=== PATIENT | female | born 1985 | race Caucasian/White ===

== ENCOUNTER 2022-03-30 01:10 | Day surgery (SDC) | payer OTHER, SELFPAY ==
[2022-03-23 13:06] VITALS: BMI 25.1
--- NOTE | 2022-03-23 13:10 | PC.NURSE ---
Report to the Outpatient Waiting Room, entrance under the green pavilion located off [facility], at time 0630 on date 03/30/22. Planned Procedure Time: 0830. Time changes happen often and if your time is changed the preop area will call you the afternoon before. - You and your visitor will be asked to self-screen and do not enter if you have any COVID symptoms. - Only one visitor is requested with a max of two and NO children visitors are allowed at this time. - The patient visitor may be requested to leave or wait in car when not with patient due to distancing restrictions. - A mask is optional within the hospital at this time. Patients may have clear liquids (water, carbonated beverages, clear teas, apple juice) until 3 hours prior to surgery with a maximum of 20 ounces. - No food from midnight until time of surgery Take the following medications with a SIP of water the morning of surgery: PAIN PILL IF NEEDED, CITALOPRAM DO NOT STOP ANY OF YOUR OTHER PRESCRIPTION MEDICATIONS PRIOR TO SURGERY?EXCEPT THE FOLLOWING Medications to discontinue per physician:: KETOROLAC Date to take last dose: NO MORE UNTIL AFTER SURGERY Please no make-up, nail kazakh, hairspray, perfume, deodorant, or body powder the day of surgery. No jewelry (including any body piercings) or valuables the day of surgery, leave them at home. Please take a shower or bath the night before, or the morning of, surgery with an antibacterial soap. Wear comfortable, loose fitting clothing. - Jewelry must be removed prior to entering the operating room. Rings and piercings that are not removed may be cut off. - The hospital will not accept responsibility for valuables. - Please leave all valuables, including medications, at home the day of surgery. If you are going home after surgery, a licensed skip load driver must drive you home. - NO public transportation without another adult if you receive anesthesia. - We recommend that an adult stay with you for 24 hours following discharge. - We also recommend that you do not drive, make important decision, drink alcoholic beverages, or take any drugs that were not prescribed by your health care provider for at least 24 hours after your discharge time. If you or anyone in your household have experienced Covid symptoms in the past week, please notify your surgeon or the nurse liaison at the phone number below for possible testing. Telephone instructions given to PT - ALBA POLO and asked if any additional questions and then verbalized understanding. Patient advised to call surgeon office or pre surgery nurse liaison [phone] if any additional questions.
--- NOTE | ~2022-03-30 | XR_ITS ---
Supine and upright views of the abdomen Clinical history: Lithotripsy Findings: Bowel gas pattern is nonspecific. No evidence for obstruction or free air. 1 cm left renal stone present. There are multiple additional smaller left upper pole and right renal stones. Osseous structures are intact. Impression: Bilateral nephrolithiasis. Largest stone is at the left lower pole measuring 1 cm. Reviewed, dictated and finalized at [facility]. [employer] DES[employer] Impression: Bilateral nephrolithiasis. Largest stone is at the left lower pole measuring 1 cm.
[2022-03-30 06:42] VITALS: BP 112/67; PULSE 60; RESP 16; TEMP 36.6; O2SAT 99
[2022-03-30] MEDS: LACTATED RINGERS 1,000 ML 30 ML IV CONT (06:45)
[2022-03-30 07:11] LABS: INR 1.1; Prothrombin Time 13.6 Seconds (11.1-14.7)
[2022-03-30 07:12] LABS: Partial Thromboplastin Time 29.4 SECONDS (22.3-36.8)
--- NOTE | 2022-03-30 07:15 | WPDHPUPDATE1 ---
History and Physical Update Update Date/Time: 03/30/22 07:15 History and Physical has been reviewed, including an updated exam of the patient. There are NO changes in the patient's condition. Risks, benefits, and alternatives have been discussed and questions answered. Patient agrees to proceed with procedure. Proceed with left renal eswl
--- NOTE | 2022-03-30 07:19 | WPDANESEPPF ---
Anes - Initial Pre Proc Eval Procedure: Operation Date: 03/30/22 07:30 Proposed Procedures p Left Extracorporeal Shock Wave Lithotripsy - Luis Angel Gonsalez MD Date/Time: 03/30/22 07:19 Surgeon: Luis Angel Gonsalez MD Pre Op Diagnosis: Left renal stones Patient Data Age: 36 Gender: F Height: 1.75 m Weight: 76.4 kg Last Vital Signs Temp 97.9 F 03/30/22 06:42 Pulse 60 03/30/22 06:42 Resp 16 03/30/22 06:42 BP 112/67 03/30/22 06:42 Pulse Ox 99 03/30/22 06:42 O2 Del Method Room Air 03/30/22 06:42 Allergies Allergy/AdvReac Type Severity Reaction Status Date / Time Penicillins Allergy Gastrointestinal Verified 03/30/22 06:47 Upset Home Medications Medication Instructions Recorded Confirmed Type citalopram 20 mg tablet 20 mg PO DAILY 03/23/22 03/30/22 History hydrocodone 5 mg-acetaminophen 325 1 tablet PO Q6H PRN Pain 03/23/22 03/30/22 History mg tablet ketorolac 10 mg tablet 10 mg PO BID 03/23/22 03/30/22 History norgestrel 0.3 mg-ethinyl 1 tablet PO DAILY 03/23/22 03/30/22 History estradiol 30 mcg tablet (Krishna (28)) Laboratory Tests 03/30/22 06:35 PT 13.6 Seconds Seconds (11.1-14.7) INR 1.1 APTT 29.4 SECONDS SECONDS (22.3-36.8) Patient hx anesthesia problems: post op nausea/vomiting Family hx anesthesia problems: none Results Review: All pre-operative results and documents have been reviewed as part of the pre-operative evaluation. [facility] Social History Social History Smoking status: Never smoker Alcohol intake: never Substance use: never Substance use type: does not use Living arrangements: with family Spiritual care concerns: No Anes - Eval Final PreProcedure Day of Procedure 03/30/22 07:19 Patient weight: normal Heart: regular rate and rhythm Lungs: clear to auscultation Airway: Mallampati scale class II Neurological: alert and oriented Last oral intake: >/= 8 hours ASA classification: II Emergent: no Anesthetic plan: proceed Anesthesia type and monitoring: general LMA and standard monitoring Results Review: All pre-operative results and documents have been reviewed as part of the pre-operative evaluation. Informed Consent: The patient's anesthetic plan and its attendant risks and benefits were discussed with the patient/family/POA. Questions were solicited and answers provided to the satisfaction of the patient/family/POA.
[2022-03-30] MEDS: SCOPOLAMINE 1.5 MG PATCH TRANSDERM (07:23)
[2022-03-30] MEDS: ceFAZolin 2 GM/D5W 50 ML 2 GM/50 ML BAG IVPB (07:26)
--- NOTE | 2022-03-30 08:07 | P.OP_ITS ---
Procedure Note - Detailed Date of Procedure 03/30/22 Pre-op Diagnosis Left renal stones Post-op Diagnosis Same Procedure Performed ESWL of left lower pole renal calculus 1 cm Surgeon Luis Angel Gonsalez MD Anesthesia General Description of Procedure Patient is taken to the operative suite correctly identified. Once anesthesia was obtained she was placed in the supine position the stone was localized in both planes. The lower pole stone was localized. Two thousand five hundred shocks were given the stone. Patient tolerated procedure well without any complications and is taken recovery stable condition. She will follow-up in 10- 14 days with K[facility]. Please send a copy this report to my office Estimated Blood Loss 0 Drains No Packing No Pathology None sent Complications No immediate complications Condition Stable Disposition PACU
[2022-03-30 08:18] VITALS: BP 106/65; PULSE 54; RESP 14; TEMP 36.4; O2SAT 100
[2022-03-30 08:30] VITALS: BP 108/63; PULSE 56; RESP 12; O2SAT 100
[2022-03-30 08:45] VITALS: BP 117/70; PULSE 65; RESP 18; O2SAT 100
[2022-03-30 08:55] VITALS: BP 121/78; PULSE 61; RESP 12
[2022-03-30 09:25] VITALS: BP 104/67; PULSE 53; RESP 12
== END 2022-03-30 09:40 | disposition home or self-care (01) ==
PROVIDERS: PCP Family Medicine; Visit Provider Urology
PROC: (CPT 50590; principal; 2022-03-30 07:30)
DX: N20.0 Calculus of kidney (principal)
CPT/HCPCS: 50590; 36415; 74018; 85610; 85730; A9270; J0690; J1100; J2250; J2370; J2405; J2704; J3010; J7120

== ENCOUNTER 2022-06-06 12:34 | Outpatient (CLI) | payer OTHER, SELFPAY ==
--- NOTE | ~2022-06-06 | XR_ITS ---
XR abdomen/kub 1V 06/06/2022 12:47 Indication: Renal stone Procedure: KUB Comparison: 03/30/2022 Findings: There are bilateral renal stones. Bowel gas pattern is nonobstructive. No acute osseous abnormality. No evidence for organomegaly. Impression: 1: Bilateral nephrolithiasis. Reviewed, dictated and finalized at location B. Impression: 1: Bilateral nephrolithiasis.
== END 2022-06-06 12:35 | disposition home or self-care (01) ==
LOC: ANHIMG 12:36
PROVIDERS: PCP Family Medicine; Visit Provider Urology
DX: N20.0 Calculus of kidney (principal)
CPT/HCPCS: 74018

== ENCOUNTER 2023-02-20 14:57 | Outpatient (CLI) | payer BC, SELFPAY ==
--- NOTE | ~2023-02-20 | XR_ITS ---
EXAM: XR abdomen/kub 1V DATE: 02/20/2023 15:14 HISTORY: CALCIUM KIDNEY STONE . COMPARISON: 06/06/2022. FINDINGS: Clear lung bases. Normal bowel gas pattern. Enlarged liver. Bilateral renal calcifications , stable in number and position. Regional bones and soft tissues normal for age. IMPRESSION: Hepatomegaly. Stable bilateral renal nephrolithiasis. Reviewed, dictated and finalized at location K. [employer]
== END 2023-02-20 14:58 | disposition home or self-care (01) ==
LOC: ANHIMG 15:04
PROVIDERS: PCP Family Medicine; Visit Provider Urology
DX: N20.0 Calculus of kidney (principal)
CPT/HCPCS: 74018

== ENCOUNTER 2024-02-27 10:04 | Outpatient (CLI) | payer BC, SELFPAY ==
--- NOTE | ~2024-02-27 | XR_ITS ---
XR abdomen/kub 1V Ordering provider: Luis Angel Gonsalez MD History: . 1 YEAR FOLLOW UP FROM LEFT ESLW . Comparison: None. FINDINGS: BOWEL: Fecal material in both sides of the colon which may indicate constipation. Nonobstructive saroj l gas pattern. ORGANOMEGALY: None. SIGNIFICANT PATHOLOGIC CALCIFICATIONS: Bilateral kidney stones. Faint calcification seen in the left side of the pelvis which may represent a stone. Follow-up advised. OTHER: No free air is seen under the diaphragm. Pubic symphysitis. IMPRESSION: NO ACUTE ABDOMINAL FINDINGS. Bilateral renal stones. Possible stone in the left lower ureter area. Clinical correlation advised. Reviewed, dictated and finalized at location A. 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
== END 2024-02-27 10:05 | disposition home or self-care (01) ==
PROVIDERS: PCP Family Medicine; Visit Provider Urology
DX: N20.0 Calculus of kidney (principal)
CPT/HCPCS: 74018